=== PATIENT | male | born 1965 | race American Indian/Alaskan Native ===

== ENCOUNTER 2016-04-03 13:57 | Inpatient (IN) | payer BC ==
[2016-04-03] MEDS ORDERED: MORPHINE IV ONE (16:11)
[2016-04-03] MEDS ORDERED: NITRO-BID 2% TP ONE (16:11)
[2016-04-03] MEDS ORDERED: ASPIRIN PO ONE (16:11)
[2016-04-03] MEDS ORDERED: CATAPRES PO ONE (16:11)
[2016-04-03] MEDS ORDERED: ZOFRAN IV ONE (16:11)
[2016-04-03 16:14] LABS: Basophils % (Auto) 0.6 % (0.0-1.8); Eosinophils % (Auto) 1.2 % (0.0-4.3); Hematocrit 40.6 % (35.5-45.6); Mean Corpuscular HGB Conc 35 % (32-34); Mean Corpuscular Hemoglobin 33 pg (28-32); Mean Corpuscular Volume 96 fl (84-94); Platelet Count 266 K/mm3 (140-440); Red Blood Count 4.23 M/mm3 (3.65-5.03); Red Cell Distribution Width 12.3 % (13.2-15.2); White Blood Count 6.5 K/mm3 (4.5-11.0)
--- NOTE | 2016-04-03 16:33 | Emergency Department Report ---
HPI - General Chief Complaint: Chest Pain Time Seen by Provider: 04/03/16 15:59 - HPI HPI: Room 26 The patient is a 50-year-old male presenting with a chief complaint of chest pain. Patient states since last night his had intermittent chest pain the left axilla and left chest radiated into his left upper extremity. Patient describes pain as sharp in nature and associated with diaphoresis. Patient denies shortness of breath nausea or vomiting. The patient currently gives his pain a score of 9/10. Patient states his last stress test occurred approximately 15 years ago and has never had a cardiac catheterization Location: [see above] Duration: Intermittent since last night Quality: Sharp Severity: 9/10 Modifying factors: [see above] Context: [see above] Mode of transportation: [not driving] ED Past Medical Hx - Past Medical History Previous Medical History?: No Hx Hypertension: Yes (noncompliant) - Surgical History Additional Surgical History: Facial reconstruction - Family History Family history: no significant - Social History Smoking Status: Former Smoker (none 20 years) Substance Use Type: None (denies illicit drug use), Alcohol (occasional) - Medications Home Medications: Home Medications Medication Instructions Recorded Confirmed Last Taken Type No Known Home Medications [No 04/03/16 04/03/16 Unknown History Reported Home Medications] ED Review of Systems ROS: Stated complaint: CHEST PAIN Other details as noted in HPI Comment: All other systems reviewed and negative Constitutional: diaphoresis Eyes: denies: eye pain, eye discharge, vision change ENT: denies: ear pain, throat pain Respiratory: denies: cough, shortness of breath, wheezing Cardiovascular: chest pain Endocrine: no symptoms reported Gastrointestinal: denies: abdominal pain, nausea, diarrhea Genitourinary: denies: urgency, dysuria Musculoskeletal: denies: back pain, joint swelling, arthralgia Skin: denies: rash, lesions Neurological: denies: headache, weakness, paresthesias Psychiatric: denies: anxiety, depression Hematological/Lymphatic: denies: easy bleeding, easy bruising Physical Exam - Physical Exam Vital Signs: Vital Signs 04/03/16 04/03/16 14:10 15:49 Temperature 98.7 F Pulse Rate 115 H 102 H Respiratory 20 18 Rate Blood Pressure 231/130 Blood Pressure 220/128 [Left] O2 Sat by Pulse 100 100 Oximetry Physical Exam: GENERAL: The patient is well-developed well-nourished male lying on stretcher not appear to be in acute distress. [] HEENT: Normocephalic. Atraumatic. Extraocular motions are intact. Patient has moist mucous membranes. NECK: Supple. No meningitic signs are noted. There is no adenopathy noted. CHEST/LUNGS: Clear to auscultation. There is no respiratory distress noted. HEART/CARDIOVASCULAR: Regular. There is no tachycardia. There is no gallop rub or murmur. ABDOMEN: Abdomen is soft, nontender. Patient has normal bowel sounds. There is no abdominal distention. SKIN: There is no rash. There is no diaphoresis. NEURO: The patient is awake, alert, and oriented. The patient is cooperative. The patient has normal speech MUSCULOSKELETAL: There is no evidence of acute injury. ED Course Vital Signs 04/03/16 04/03/16 14:10 15:49 Temperature 98.7 F Pulse Rate 115 H 102 H Respiratory 20 18 Rate Blood Pressure 231/130 Blood Pressure 220/128 [Left] O2 Sat by Pulse 100 100 Oximetry ED Medical Decision Making - Lab Data Result diagrams: 04/03/16 16:03 04/03/16 16:03 Laboratory Tests 04/03/16 04/03/16 16:03 16:03 WBC 6.5 RBC 4.23 Hgb 14.0 Hct 40.6 MCV 96 H MCH 33 H MCHC 35 H RDW 12.3 L Plt Count 266 Lymph % (Auto) 26.0 Otero % (Auto) 5.8 Eos % (Auto) 1.2 Baso % (Auto) 0.6 Lymph # 1.7 Otero # 0.4 Eos # 0.1 Baso # 0.0 Seg Neutrophils % 66.4 Seg Neutrophils # 4.3 Sodium 142 Potassium 3.3 L Chloride 98.1 Carbon Dioxide 28 Anion Gap 19 BUN 12 Creatinine 1.1 Estimated GFR > 60 BUN/Creatinine Ratio 10.90 Glucose 148 H Calcium 8.8 Troponin T < 0.010 - EKG Data -: EKG Interpreted by Me EKG shows normal: sinus rhythm Rate: normal - EKG Data When compared to previous EKG there are: previous EKG unavailable Interpretation: nonspecific ST-T wave jann (ST segment depressions in leads 1, 2 , aVF, V4, V5, V6. T-wave inversions in leads one to aVL and aVF V4, V5, V6) - Radiology Data Radiology results: image reviewed (chest x-ray) interpreted by me: Chest x-ray-no focal infiltrates, no pneumothorax - Differential Diagnosis ACS, hypertensive urgency, GERD, pericarditis Critical care attestation.: If time is entered above; I have spent that time in minutes in the direct care of this critically ill patient, excluding procedure time. ED Disposition Clinical Impression: Chest pain, Hypertensive urgency, T wave inversion in EKG Disposition: OP ADMITTED IP TO THIS HOSP Is pt being admited?: Yes Does the pt Need Aspirin: Yes Condition: Fair Instructions: Chest Pain (ED) Time of Disposition: 16:59 (hospitalist paged)
[2016-04-03 16:34] LABS: Anion Gap 19 mmol/L; Blood Urea Nitrogen 12 mg/dL (9-20); Calcium 8.8 mg/dL (8.4-10.2); Carbon Dioxide 28 mmol/L (22-30); Chloride 98.1 mmol/L (98-107); Glucose 148 mg/dL (75-100); Potassium 3.3 mmol/L (3.6-5.0); Sodium 142 mmol/L (137-145)
--- NOTE | 2016-04-03 16:40 | Admit Criteria Form ---
Admission Criteria Documentation: CHEST PAIN Clinical Indications for Admission to Inpatient Care (Place 'X' for any and all applicable criteria): Admission is indicated for chest pain and ANY ONE of the following(1)(2)(3)(4)(5 ): [ ]I. Angina with acute coronary syndrome (Also use Myocardial Infarction or Angina guideline) [ ]II. Hemodynamic instability [ ]III. Angina needing acute intervention as indicated by ALL of the following( 11)(12): [ ]a) Unstable angina is present as indicated by angina that is ANY ONE of the following: [ ]i) New onset [ ]ii) Nocturnal [ ]iii) Prolonged at rest [ ]iv) Progressive [ ]b) Angina warrants acute intervention as indicated by ANY ONE of the following: [ ]i) Recurrent angina (e.g, not responding as previously to treatment) [ ]ii) Angina at rest or with low-level activities despite initial medical therapy [ ]iii) New or presumably new ST-segment depression on ECG [ ]iv) Signs or symptoms of heart failure (eg, dyspnea, pulmonary edema) [ ]v) New or worsening mitral regurgitation [ ]vi) Hemodynamic instability [ ]vii) Dangerous arrhythmia (eg, sustained ventricular tachycardia) [ ]viii) History of percutaneous coronary intervention within 6 months [ ]ix) History of coronary artery bypass graft surgery [ ]x) ZAHIDA risk score of 2 or greater[A] [ ]xi) History of Diabetes(14) [ ]xii) High-risk cardiac ischemia findings on noninvasive testing (e.g, echocardiogram, treadmill testing, nuclear scan) [ ]xiii) Chronic renal insufficiency (ie, estimated GFR less than 60 mL/min/1.732m) [ ]xiv) Left ventricular ejection fraction less than 40% [ ]IV. Evidence of RI (eg, cardiac biomarkers positive, ST-segment elevation on ECG) also use Myocardial Infarction Criteria Form. [ ]V. Pulmonary edema [ ]. Respiratory distress [ ]VII. Chest pain indicative of serious diagnosis other than coronary artery disease (eg, aortic dissection) [ ]VIII. Contraindications and/or Inappropriate clinical situations for Observational Care in patients with Chest Pain, when ANY ONE of the following is required: [ ]a) Patient with risk factor for pulmonary embolism, acute coronary syndrome and myocardial infarction (18) [ ]b) Patient with Pulmonary embolism require an average LOS of 4.3 days, therefore emergency department observation management is inappropriate 18,23 [ ]c) Painful condition/s in the elderly, have the highest rate of recidivism after emergency department observation management (10.8%) 20,21,22 [ ]d) Elevated cardiac biomarker requires intensive and exhaustive care (19) [X ]IX. General contraindications and/or Inappropriate clinical situations for Observational Care in patients with Chest Pain, when ANY ONE of the following is required: [ ]a) Prediction of prolongation of LOS based on ANY ONE of the following may be considered as a contraindication for observational care 2, 3, 4, 5, 6, 7, 8, 9, 10, 11 [ ]i) Age > 65 yrs. [ ]ii) Patient arriving by ambulance [ ]iii) Patient with high acuity [ ]iv) Patient requiring vital sign monitoring [ ]v) Patient on IV medication [ X]b) Systolic blood pressures 180mmHg 3,12 [ ]c) Patient with altered mental status including delirium and other alteration of consciousness, (3) [ ]d) Patient whose discharge disposition will be to a penitentiary home or rehabilitation home should not be managed in Emergency Department Observation Unit. CMS rule requires 3 days hospital stay before such placement. 3,13 [ ]e) Patient with failure to thrive due to broad array of etiologies 3,16,17 [ ]f) Inability to ambulate 3,14 Extended stay beyond goal length of stay may be needed for (1)(28): [ ]a) Specific condition diagnosed after evaluation (eg, pulmonary embolism, aortic dissection) [ ]b) Unstable angina [ ]c) Continued suspicion of acute coronary syndrome with inability to complete needed cardiac evaluation (eg, patient clinically unable to undergo stress testing) [ ]d) Myocardial infarction (Contents from ANGINA and CHEST PAIN clinical indications for admission to inpatient care have been integrated in this form) The original [facility] content created by [employer] has been revised. The portions of the content which have been revised are identified through the use of italic text or in bold, and [facility] has neither reviewed nor approved the modified material. All other unmodified content is copyright [facility]. Please see references footnoted in the original [facility] edition 2016 Admission Criteria Met: Yes
[2016-04-03 22:22] VITALS: BP 185/111
--- NOTE | 2016-04-04 09:20 | XRay Report ---
AP CHEST: HISTORY: Chest pain. FINDINGS: No comparison. There is [id number] cardiomegaly. Normal pulmonary vascularity. The lungs are clear. No obvious infiltrate, pleural effusion or pneumothorax. The thoracic cage is within normal limits. IMPRESSION: Cardiomegaly.
== END 2016-04-03 22:35 | disposition left against medical advice (07) | DRG 313 ==
LOC: ED 13:57 → 4A 17:07
PROVIDERS: ADMIT Internal Medicine; ATTEND Internal Medicine
DX: R07.9 Chest pain, unspecified (principal); I10 Essential (primary) hypertension; Z91.14 Patient's other noncompliance with medication regimen; Z87.891 Personal history of nicotine dependence; I16.0 Hypertensive urgency; Z53.21 Procedure and treatment not carried out due to patient leaving prior to being seen by health care provider
CPT/HCPCS: 36415; 71010; 80048; 84484; 85025; 93005; 93010; J2270; J2405